=== PATIENT | male | born 1950 | race Caucasian/White ===

== ENCOUNTER 2022-04-02 09:51 | Outpatient (CLI) | payer MEDICARE, SELFPAY ==
--- NOTE | 2022-04-02 10:00 | CRLHL7_ITS ---
For Patients: As a result of the Century Cures Act, medical imaging exams and procedure reports are released immediately into your electronic medical record. You may view this report before your referring provider. If you have questions, please contact your health care provider. INDICATION: Chest wall pain, fall TECHNIQUE: Axial images were obtained from the thoracic inlet to the diaphragm. Reformats: Coronal and sagittal IV Contrast: None COMPARISON: Left rib series 03/30/2022 FINDINGS: Mediastinum: Thyroid gland is unremarkable. Borderline fusiform enlargement of the ascending thoracic aorta at 4.1 centimeters. Mild coronary atherosclerosis. No enlarged mediastinal lymph nodes. No pericardial effusion. Lungs and Pleural Space: No pneumothorax or pleural effusion. No acute consolidation. Chest wall: No masses. Upper abdomen: Cholelithiasis without pericholecystic inflammation. 4 millimeter hypodensity within the liver which is too small for characterization. Bones: Unremarkable for age. IMPRESSION: 1. No definite fracture or pneumothorax. 2. Cholelithiasis without CT evidence of cholecystitis. 3. Borderline fusiform enlargement of the ascending thoracic aorta of 4.1 centimeters. Please note that all CT scans at this facility use dose modulation, iterative reconstruction, and/or weight-based dosing when appropriate to reduce radiation dose to as low as reasonably achievable. Dictated by Bigg Mix MD @ 04/02/2022 11:47:15 AM (Electronically Signed)
== END 2022-04-02 09:52 | disposition home or self-care (01) ==
LOC: CT 09:54
PROVIDERS: PCP Internal Medicine; Visit Provider Nurse Practitioner Family
DX: R07.89 Other chest pain (principal); K80.20 Calculus of gallbladder without cholecystitis without obstruction; I51.7 Cardiomegaly
CPT/HCPCS: 71250

== ENCOUNTER 2022-04-13 16:10 | Outpatient (CLI) | payer MEDICARE, SELFPAY ==
[2022-04-13 18:11] LABS: Cholesterol* 220 mg/dL (90-199); HDL Cholesterol* 60 mg/dL (>=40); LDL Cholesterol Calculated 121 mg/dL (<100); Triglycerides* 197 mg/dL (40-149)
== END 2022-04-13 16:11 | disposition home or self-care (01) ==
LOC: NFLDREF 16:11
PROVIDERS: PCP Internal Medicine; Visit Provider Internal Medicine
DX: I77.810 Thoracic aortic ectasia (principal); Z13.6 Encounter for screening for cardiovascular disorders; E78.41 Elevated Lipoprotein(a)
CPT/HCPCS: 80061

== ENCOUNTER 2023-05-17 09:16 | Outpatient (CLI) | payer MEDICARE, SELFPAY | END 2023-05-17 09:17 | disposition home or self-care (01) | LOC: NFLDREF 05-19 08:04 | PROVIDERS: PCP Internal Medicine; Referring Provider Internal Medicine; Visit Provider Internal Medicine | DX: E78.5 Hyperlipidemia, unspecified (principal); Z83.3 Family history of diabetes mellitus; Z13.1 Encounter for screening for diabetes mellitus | CPT/HCPCS: 80061; 82947 ==

== ENCOUNTER 2023-05-24 12:46 | Outpatient (CLI) | payer MEDICARE, SELFPAY ==
--- OUTSIDE RECORDS SUMMARY | 2023-05-24 12:49 | XMS_ITS | Clinical Summary ---
Author Name Unknown Organization [facility] Address [place], [place] [address] Care Team Providers Care Molder Wax Ball Name Role Phone Unavailable Primary Care Provider Unavailabl e Allergies Active Allergy Reactions Criticality Noted Date Comments Mirtazapine Dizziness Low 01/01/2021 Sulfa (Sulfonamide Antibiotics) Hives 04/2013 Medications Medication Sig Dispensed Refills Start Date End Date Status sildenafil citrate (VIAGRA) 100 mg tabletIndications:Ere ctile dysfunction, unspecified erectile dysfunction type Take 1 tablet by mouth once daily if needed for Erectile Dysfunction. Take 30min to 4 hours before sexual activity. 30 tablet 11 03/08/2019 Active sildenafil citrate (VIAGRA) 100 mg tabletIndications:Ere ctile dysfunction, unspecified erectile dysfunction type Take 1 tablet by mouth once daily if needed for Erectile Dysfunction. Take 30min to 4 hours before sexual activity. Max 100mg/24hr. 30 tablet 11 04/19/2019 Active rmsk-snfwk-afk-hyal-c al borate 500 mg-66.7 mg- 500 mg-1.1 mg tab Take by mouth. 0 11/19/2020 Active coenzyme q10 (Co Q-10) 100 mg cap Take 1 Capsule (100 mg) by mouth once daily. 0 11/19/2020 Active pycdlsi-ecke-dlulj-or eg-capryl 100 mg-150 mg- 50 mg-150 mg cap Take by mouth. 0 11/19/2020 Active sertraline (ZOLOFT) 25 mg tabletIndications:Chr onic insomnia Take 1 Tablet (25 mg) by mouth once daily. Take at night 30 Tablet 1 01/01/2021 Active Active Problems Problem Noted Date Diagnosed Date Chronic insomnia 03/11/2021 Upper airway resistance syndrome 03/11/2021 Social History Tobacco Use Types Packs/Day Years Used Date Smoking Tobacco: Former Cigarettes 1.5 20 1 967 - 1987 Smokeless Tobacco: Never Tobacco Cessation:Counseling Given: Yes Alcohol Use Standard Drinks/Week Comments Yes 0 (1 standard drink = 0.6 oz pur e alcohol) couple glasses of wine per day Social Connections Answer Date Recorded Frequency of Communication with Friends and Fami ly Not on file 02/15/2021 Financial Resource Strain Answer Date R ecorded Difficulty of Paying Living Expenses Not on file 02/15/2021 Difficulty of Paying Living Expenses Not on file 02/15/2021 Sex and Gender Information Value Date Recorded Sex Assigned at Not on file Gender Identity Not on file Sexual Orientation Not on file Obstetrics History Last Filed Vital Signs Vital Sign Reading Time Taken Comments Blood Pressure 131/66 03/11/2021 9:06 AM [employer] Pulse 67 03/11/2021 9:06 AM [employer]INE [employer] Temperature 36.6 ??C (97.8 ??F) 12/18/2013 1 0:55 AM [employer]ACHINE [employer]PERATOR Respiratory Rate 18 04/19/2019 8:50 AM [employer]OVING MACHINE OPERATOR Oxygen Saturation 98% 03/11/2021 9:06 AM GR[employer]OVING MACHINE OPERATOR Inhaled Oxygen Concentration - - Weight 93.4 kg (205 lb 14.4 oz) 03/11/2021 9:06 AM GROOVING MACHINE OPERATOR Height 180.7 cm (5' 11.16) 11/19/2020 10:42 AM CDT Body Mass Index 28.59 11/19/2020 10:42 AM CDT Plan of Treatment Health Maintenance Due Date Last Done Comments Tdap 09/15/1963 Depression screening for age 12+ 1964 Hepatitis C screening for age 18-79 1970 Tetanus booster 1972 Colonoscopy through age 75 1997 Lipids for age 45-75 1997 Zoster (shingles) series for age 50+ (1 of 2) 2002 Medicare Wellness for age 65+ 2017 Pneumococcal series for age 65+ (1 of 1 - PCV) 2017 BMI (ht and wt on same day) for age 18+ 11/19/2021 1 COVID-19 vaccine series (2022- season) 2022 05/14/2020, 04/23/2020 Influenza for age 65+ 10/17/2023 Emigdio Stover Workers Comp Self 1950 [id number] [place] [address]
--- NOTE | 2023-05-24 13:00 | CT_ITS ---
Patient: JANE HAMMOND Facility:?[facility] Patient ID:?[id number] Site Patient ID:?[id number]. Site :?1950 Study:?CT-Chest WITHOUT-05/24/2023 1:08:28 PM Ordering Physician:?DR. FONTENOT Final Report: INDICATION: Fusiform enlargement of ascending thoracic aorta seen on previous CT. TECHNIQUE: CT chest without contrast. COMPARISON: CT chest 04/02/2022. FINDINGS: Lungs and pleura: No suspicious nodules or infiltrates. No pleural effusions, pleural thickening, or pneumothorax. Heart and vasculature: Heart size is normal. Mild fusiform dilatation of the ascending aorta which measures 4.2 centimeters in maximal dimension when measured on the coronal plane, not significantly changed compared to March 2022. Main pulmonary artery normal in caliber. Mild aortic calcification. Mild coronary artery calcification. Lymph nodes/mediastinum: No mediastinal, hilar, or axillary adenopathy. Chest wall: No masses. Upper abdomen: Cholelithiasis. Bones: Mild degenerative spondylosis. IMPRESSION: 1. Mild fusiform dilatation of the ascending aorta which measures 4.2 centimeters in maximum dimension. 2. Mild aortic and coronary artery calcification. 3. Cholelithiasis. Please note that all CT scans at this facility use dose modulation, iterative reconstruction, and/or weight-based dosing when appropriate to reduce radiation dose to as low as reasonably achievable. Dictated by Joshua Gutierres MD @ 05/25/2023 7:32:41 AM Signed by:?Joshua Gutierres MD @05/25/2023 7:32:41 AM (Electronic Signature)
== END 2023-05-24 12:47 | disposition home or self-care (01) ==
LOC: CT 12:47
PROVIDERS: PCP Internal Medicine; Visit Provider Internal Medicine
DX: I77.810 Thoracic aortic ectasia (principal); I25.10 Atherosclerotic heart disease of native coronary artery without angina pectoris; K80.20 Calculus of gallbladder without cholecystitis without obstruction
CPT/HCPCS: 71250

== ENCOUNTER 2023-09-06 09:34 | Outpatient (CLI) | payer MEDICARE, SELFPAY ==
--- OUTSIDE RECORDS SUMMARY | 2023-09-08 00:47 | XMS_ITS | Clinical Summary ---
Author Organization [employer] Address [place], [place] [address] Care Team Providers Care Dispatcher Street Department Name Role Phone Unavailable Primary Care Provider [...] Max 100mg/24hr. 30 tablet 11 04/19/2019 Active wdqa-wkndb-iqf-hyal-c al borate 500 mg-66.7 mg- 500 mg-1.1 mg tab Take by mouth. 0 11/19/2020 Active coenzyme q10 (Co Q-10) 100 mg cap Take 1 Capsule (100 mg) by mouth once daily. 0 11/19/2020 Active onzjbqf-oyrz-uckdw-or eg-capryl 100 mg-150 mg- 50 mg-150 mg [...] Comments Blood Pressure 131/66 03/11/2021 9:06 AM [employer] Pulse 67 03/11/2021 9:06 AM [employer] Temperature 36.6 ??C (97.8 ??F) 12/18/2013 1 0:55 AM [employer] Respiratory Rate 18 04/19/2019 8:50 AM [employer] Oxygen Saturation 98% 03/11/2021 9:06 AM [employer] Inhaled Oxygen Concentration - - Weight 93.4 kg (205 lb 14.4 oz) 03/11/2021 9:06 AM [employer] Height 180.7 cm (5' 11.16) 11/19/2020 10:42 [...] 10/17/2023 Emigdio Stover Workers Comp Self 1950 [address], [place] [address]
== END 2023-09-06 09:35 | disposition home or self-care (01) ==
LOC: NFLDREF 09-08 00:45
PROVIDERS: PCP Internal Medicine; Referring Provider Internal Medicine; Visit Provider Internal Medicine
DX: E78.5 Hyperlipidemia, unspecified (principal)
CPT/HCPCS: 80061

== ENCOUNTER 2024-05-17 09:08 | Outpatient (CLI) | payer MEDICARE, SELFPAY | END 2024-05-17 09:09 | disposition home or self-care (01) | LOC: NFLDREF 05-20 20:54 | PROVIDERS: PCP Internal Medicine; Referring Provider Internal Medicine; Visit Provider Internal Medicine | DX: E78.5 Hyperlipidemia, unspecified (principal); I25.10 Atherosclerotic heart disease of native coronary artery without angina pectoris | CPT/HCPCS: 80061 ==

== ENCOUNTER 2024-05-18 10:14 | Outpatient (CLI) | payer MEDICARE, SELFPAY | END 2024-05-18 10:15 | disposition home or self-care (01) | LOC: OP CLINIC 10:15 | PROVIDERS: PCP Internal Medicine; Visit Provider Internal Medicine | DX: Z12.11 Encounter for screening for malignant neoplasm of colon (principal); Z86.0100 Personal history of colon polyps, unspecified | CPT/HCPCS: 45380; 88305 ==

== ENCOUNTER 2024-05-26 08:49 | Outpatient (CLI) | payer MEDICARE, SELFPAY ==
--- NOTE | 2024-05-26 09:00 | CRLHL7_ITS ---
For Patients: As a result of the Century Cures Act, medical imaging exams and procedure reports are released immediately into your electronic medical record. You may view this report before your referring provider. If you have questions, please contact your health care provider. INDICATION: Thoracic dilatation TECHNIQUE: CT chest without contrast. COMPARISON: CT 04/02/2022 FINDINGS: Lungs and pleura: No suspicious nodules or infiltrates. No pleural effusions, pleural thickening, or pneumothorax. Heart and vasculature: Mild aneurysmal dilatation of the ascending thoracic aorta measuring 4.1 centimeters. Coronary artery calcification heart size is normal. Lymph nodes/mediastinum: No mediastinal, hilar, or axillary adenopathy. Chest wall: No masses. Upper abdomen: Cholelithiasis Bones: Unremarkable for age. IMPRESSION: 1. Mild 4.1 centimeter ascending thoracic aortic aneurysm. Please note that all CT scans at this facility use dose modulation, iterative reconstruction, and/or weight-based dosing when appropriate to reduce radiation dose to as low as reasonably achievable. Dictated by Sasha Hernandez MD @ 05/26/2024 12:50:25 PM (Electronically Signed)
== END 2024-05-26 08:50 | disposition home or self-care (01) ==
LOC: CT 08:52
PROVIDERS: PCP Internal Medicine; Visit Provider Internal Medicine
DX: I77.810 Thoracic aortic ectasia (principal); I71.21 Aneurysm of the ascending aorta, without rupture
CPT/HCPCS: 71250

== ENCOUNTER 2024-07-21 08:15 | Outpatient (RCR) | payer MEDICARE, SELFPAY ==
--- NOTE | 2024-06-13 17:44 | PT.OPEX ---
PT [place] Outpatient Eval PT [facility] Outpatient Eval Start: 06/13/24 12:59 Freq: Status: Active Protocol: Document 06/13/24 12:59 [facility] (Rec: 06/13/24 17:39 [facility] [id number]) E-signed By Cas De Souza, PT Physical Therapy Outpatient Evaluation Insurance Information Recert Due Date 09/05/24 Insurance Name Medicare B Medical Diagnosis left shoulder tendinopathy M67 .912 Treating Diagnosis Left shoulder pain M25.512 Muscle weakness M62.[address] Toya Mckenna Subjective Subjective Emigdio presents with left anterior shoulder pain, insidious onset ~8 weeks ago. He swims 3 miles/week, but his shoulder doesn't hurt much with swimming (2/10), Denies paraesthesias left UE. Aggravating: lying flat on his back w/ arm by side, lifting arm out to the side, sleep PMH: right shoulder surgery ~ 12 years ago s/p fall Pain Comments Left anterior shoulder: at worst 710 Average: 2-3/10 never pain free Date of Last Physician Visit 05/23/24 Current Work Status Retired Objective Other/Pertinent Objective Posture: mild forward head Left shoulder ROM: Active / Passive Flexion: WNL / WNL Abduction: 75* / progressed from 80 deg to 135 deg w/ time ER: functional WNL / 75 deg IR: functional WNL / 85 deg Left UE strength: shoulder Flexion; 5/5 Abduction: 3+ * ER: 5/5 IR: 5/5 Extension: 5/5 Adduction: 5/5 Pec press: 2+ * Elbow flexion: 5/5 supination: 4+/5 * Pronation: 5/5 Special tests: L UE Impingement: Neers and H-K negative AC joint compression: - Speeds: mild + Flexibility: + concordant sign with left pec stretch and biceps (short head) stretch Palpation: +TTP left pec and biceps short head (belly and tendon) Functional Test Performed & Score Quick DASH: 27.2% disability Assessment Assessment/Impression 73 year old male presents with left anterior shoulder pain, insidious onset 2 months ago. 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 Evaluation findings today indicate left pec and short head biceps mm/tendon strain, however, the cause is unclear. It is possible that he injured it with his farm work/ swimming routine, and while he states that these activities cause him minimal pain, he may be continuing to aggravate his symptoms with these heavy and/or repetitive movements using his left arm. Patient to benefit from skilled PT for manual therapy and progression in ROM/ strengthening program. Initial goal is to restore full pain free AROM of his left shoulder . He may benefit from a trial of iontophoresis to reduce inflammation. 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, swimming regularly pain free left shoulder with all activities Primary Functional Limitations lift arm to side and behind back, reach, sleep, transitional movements in bed Plan of Care Rehabilitation Potential Excellent Physical Therapy Goals In 4-6 weeks, pt will: 1) Demo full painfree AROM left shoulder In 8-10 weeks, patient will: 2) Improve QuickDash by at least 14 points, MCID 3) Be able to sleep thru the night without shoulder pain disrupting sleep 4) Resume PLOF daily activities, left shoulder pain max 3/10 Coordination/Communication With Referral Source Treatment Plan/Direct Interventions Iontophoresis,Manual Therapy, Neuromuscular Re-ed,Self-Care/ Home Management,Therapeutic Activities,Therapeutic Exercises Direct Interventions Clarification shoulder rehab for presumed Comments left pec and biceps strain Frequency/Duration ~1x/week for 8-10 weeks Patient Will Be Discharged From Therapy Independent w/HEP, Independently Progressing Evaluation Billing Untimed Code Treatment Minutes 30 Complexity Moderate Certification Information Initial Certification Date 06/13/24 Ending Certification Date 09/05/24 Provider Signature Required Yes Provider Signature Shows Agreement With POC & Medical Necessity Physician NPI Number Write NPI# Here Physician Comment/Change : Physician Signature & Date Requested Please Sign/Date Here
== END 2024-09-06 14:11 | disposition home or self-care (01) ==
PROVIDERS: PCP Internal Medicine; Visit Provider Internal Medicine
DX: M67.912 Unspecified disorder of synovium and tendon, left shoulder (principal); Z51.89 Encounter for other specified aftercare
CPT/HCPCS: 97110; 97140; 97162

== ENCOUNTER 2024-07-31 17:49 | Outpatient (CLI) | payer MEDICARE, SELFPAY ==
--- NOTE | 2024-07-31 18:15 | MR_ITS ---
[address] [address] Phone:?[phone] Fax:?[phone] Referring Physician Information: Riley Meyers M.D. [address] [facility] [address] Phone:?[phone] Fax:?[phone] Patient:Atif Stover D.O.B:?1950 Sex:?Male Phone:?[phone] [facility] MRN:?[id number] Exam Date:?07/31/2024 EXAM: MRI OF THE LEFT SHOULDER CLINICAL INFORMATION: The patient is a 73-year-old with left shoulder pain. Evaluate for rotator cuff tear. PRIOR SURGERY: None reported. COMPARISON STUDIES: Comparison is made to prior radiographs dated 07/25/2024. TECHNICAL INFORMATION: Imaging was performed on a high-field, 1.5 Valeria MR scanner. Axial, coronal, and sagittal proton-density and T2 imaging of the left shoulder was produced in addition to coronal STIR imaging. FINDINGS: Articular/Extraarticular collections: Effusion: Mild. Subacromial/subdeltoid: Mild fluid is seen within the subacromial/subdeltoid bursa, in keeping with mild bursitis. Subcoracoid: No evidence for bursitis. Osseous structures: Proximal humerus: No evidence for bony injury to the proximal humerus can be seen. There is no evidence for greater tuberosity fracture. No Hill-Sachs or reverse Hill-Sachs deformity is seen. Glenoid: No acute bony abnormality of the glenoid fossa or glenoid neck can be seen. Acromioclavicular joint: Moderate changes of acromioclavicular joint arthrosis are present and can be seen on sagittal series 8 image 15 and on coronal series 5 image 13. Coracoacromial arch: Acromion morphology: Type II. No evidence for os acromiale. Acromiohumeral space: Mildly narrowed. Coracohumeral space: Mildly narrowed. Rotator cuff and deltoid: Supraspinatus: Moderate changes of supraspinatus tendinosis can be seen. There is no evidence for well-defined full or partial-thickness tearing of the supraspinatus tendon fibers. No atrophic changes of the supraspinatus muscle belly are present. Infraspinatus: Moderate infraspinatus tendinosis can be seen. There is no evidence for full or partial-thickness tearing. No atrophic changes of the infraspinatus muscle belly are identified. Teres minor: No evidence for tendinosis, tearing, or associated muscle belly atrophy. Subscapularis: Moderate subscapularis tendinosis can be seen. There is no evidence for full or partial-thickness tearing. No atrophic changes of the subscapularis muscle belly are noted. Deltoid: No evidence for strain or tearing. Biceps tendon: The intra-articular and biceps sulcus portions of the biceps tendon are normal. There is no evidence for rupture, dislocation, or subluxation. Glenohumeral joint and labrum: Articular Cartilage: No chondral injuries along the articular surfaces of the glenohumeral articulation can be seen. No osteoarthritic changes are identified. Labrum: Degeneration and poorly defined tearing of the superior, posterior, and inferior portions of the glenoid labrum can be seen. A small paralabral ganglion cyst is noted posteroinferiorly on coronal series 5 image 21, measuring approximately 10 mm in greatest dimension. Capsular Soft Tissues: No definite capsular abnormalities of the glenohumeral joint are seen. No evidence for capsular tearing is present and there are no MR signs of adhesive capsulitis. CONCLUSION: 1. Moderate supraspinatus, infraspinatus, and subscapularis tendinosis. No full or partial-thickness rotator cuff tearing is identified. 2. Moderate acromioclavicular joint arthrosis with mild narrowing of the acromiohumeral space. 3. Degeneration and tearing of the glenoid labrum as described above. 4. The long head of the biceps tendon appears intact. 5. No osteoarthritic changes of the glenohumeral articulation are present. 6. Mild glenohumeral joint effusion and mild subacromial/subdeltoid bursitis. A[facility] Electronically signed on 08/01/2024 8:58:00 AM by Federico Bernal M.D.
== END 2024-07-31 17:50 | disposition home or self-care (01) ==
LOC: MRI 17:49
PROVIDERS: PCP Internal Medicine; Visit Provider Orthopaedic Surgery Sports Medicine
DX: M25.512 Pain in left shoulder (principal); M75.102 Unspecified rotator cuff tear or rupture of left shoulder, not specified as traumatic; M19.012 Primary osteoarthritis, left shoulder; S43.432A Superior glenoid labrum lesion of left shoulder, initial encounter; M25.412 Effusion, left shoulder
CPT/HCPCS: 73221